=== PATIENT | male | born 1980 | race Caucasian/White ===

== ENCOUNTER 2021-03-25 15:08 | Emergency (ER) | payer SELFPAY ==
[~2021-03-25] VITALS: Ht 187 cm; Wt 88.0 kg
[2021-03-25 15:28] VITALS: BP 139/89
[2021-03-25] MEDS ORDERED: diphenhydrAMINE 50 MG/ML INJ (BENADRYL) IM ONE (15:45)
[2021-03-25] MEDS ORDERED: HYDROcodone/APAP 5 MG/325 MG (LORTAB) TAB PO ONE (15:45)
--- NOTE | 2021-03-25 15:46 | ED Integumentary General ---
General Chief Complaint: Skin/Wound Problems Stated Complaint: HIVES Nursing Triage Note: PT C/O GENERALIZED RASH ON TRUNK AND ARMS. PT REPORTS TAKING MULTIPLE ANTIBIOTICS OVER LAST MONTH FOR FOOT INJURY Source: patient Exam Limitations: no limitations (HERLINDA LAND APRN) History of Present Illness Date Seen by Provider: Mar 25, 2021 Time Seen by Provider: 15:24 Initial Comments This is a well-appearing 41-year-old male who presented to the ER via POV for concerns of generalized rash on his trunk and arms. States that he has been taking multiple antibiotics and recently an antifungal over the past month for an injury to his left foot. States that he has been working with his primary care provider for the past 4 weeks and his foot is still not healing. He would like a second opinion today. No fever, chills, cough, shortness of breath, nausea, vomiting, abdominal pain. Has not taken anything for her rash prior to arrival. (HERLINDA LAND APRN) Allergies and Home Medications Allergies Coded Allergies: amoxicillin (Unverified Allergy, Unknown, 03/25/21) Patient Home Medication List Home Medication List Reviewed: Yes (HERLINDA LAND APRN) Review of Systems Review of Systems Constitutional: no symptoms reported EENTM: no symptoms reported Respiratory: no symptoms reported Cardiovascular: no symptoms reported Gastrointestinal: no symptoms reported Genitourinary: no symptoms reported Musculoskeletal: see HPI Skin: see HPI Psychiatric/Neurological: No Symptoms Reported Endocrine: No Symptoms Reported Hematologic/Lymphatic: No Symptoms Reported (HERLINDA LAND APRN) Past Vtoismk-Vuryyn-Mhzcrz Hx Patient Social History Tobacco Use?: Yes Tobacco type used: Cigarettes Substance use?: No Alcohol Use?: No Pt feels they are or have been: No (HERLINDA LAND APRN) Past Medical History Surgery/Hospitalization HX: RECENT FOOT INJURY (HERLINDA LAND APRN) Physical Exam Vital Signs Vital Signs - First Documented 03/25/21 15:28 Temp 36.7 Pulse 92 Resp 18 B/P (MAP) 139/89 (106) Pulse Ox 98 O2 Delivery Room Air (LINDA KNIGHT MD) Vital Signs Capillary Refill : Less Than 3 Seconds (HERLINDA LAND APRN) General Appearance: WD/WN, no apparent distress HEENT: PERRL/EOMI, normal ENT inspection Neck: full range of motion, normal inspection Cardiovascular: regular rate, rhythm, no edema, no murmur Respiratory: lungs clear, normal breath sounds Gastrointestinal: normal bowel sounds, non tender, soft Extremities: normal range of motion, normal inspection Neurologic/Psychiatric: no motor/sensory deficits, alert, normal mood/affect, oriented x 3 Skin: normal color, warm/dry Skin Problem Location: other (left toes between 3-4 and 4-5) Skin Problem Character: other (macerated white skin from excessive moisture. Open ulceration between toes 3-4. ) (HERLINDA LAND APRN) Progress/Results/Core Measures Results/Orders Vital Signs/I&O 03/25/21 15:28 Temp 36.7 Pulse 92 Resp 18 B/P (MAP) 139/89 (106) Pulse Ox 98 O2 Delivery Room Air (LINDA KNIGHT MD) Blood Pressure Mean: 106 Progress Progress Note : Progress Note On exam he is noted to have macerated skin between toes 3-4 and 4-5 from fungal infection. Has open wound between toes 34. States he has been having increasing pain and is concerned he is developing a secondary infection despite taking antibiotics. Will obtain x-ray to assess for any osteomyelitis. We will also give hydrocodone for pain at this time. Orders placed for Benadryl 50 mg IM for hives along with Decadron IM for hives. Patient and spouse would like wound care referral. Will initiate referral to [facility] wound care. Discussed that this is a fungal infection and would likely take several weeks to heal. Patient also needs to keep his foot as dry as possible. He can place dry gauze between his toes, make sure he uses blow dryer to dry thoroughly between toes after shower. Avoid sweating with socks. Keep his foot open to air is much as possible. Also discussed using solution of saline and iodine. Reviewed discharge POC with him and he is agreeable with plan. At time of discharge verbalized that he can use Benadryl every 4-6 hours as directed per package for itching and rash. Also discussed discontinuing his antifungal which was recently prescribed. States that he has already completed this. We will have him follow-up with his primary care provider. (HERLINDA LAND APRN) Diagnostic Imaging Diagonstic Imaging: Xray Comments [facility]. [place], [place] NAME: MAHENDRA MELGOZA [facility] REC#: [id number] PT STATUS: DEP ER : 1980 PHYSICIAN: HERLINDA LAND APRN ADMIT DATE: 03/25/21/ER Signed Date of Exam:03/25/21 FOOT, LEFT, 3 VIEWS INDICATION: Left foot injury with pain. FINDINGS: AP, oblique, and lateral views of the left foot are obtained. There is no evidence of fracture or malalignment. No focal lytic or sclerotic lesion is identified, and there is no evidence of radiopaque foreign object. IMPRESSION: No acute abnormality is detected. Dictated by: Dictated on workstation # [id number] Dict: 03/25/21 1557 Trans: 03/26/21 0759 [id number] Interpreted by: SUDHIR MADISON MD Electronically signed by: SUDHIR MADISON MD 03/26/21 0759 (HERLINDA LAND APRN) Departure Impression Primary Impression: Tinea pedis Disposition: HOME, SELF-CARE Condition: Stable Departure-Patient Inst. Decision time for Depature: 16:40 (HERLINDA LAND APRN) Referrals: [facility] (PCP/Family) Primary Care Physician Patient Instructions: Athlete's Foot Add. Discharge Instructions: This condition is also known as tinea pedis and is caused by a fungus that lives in the warm, moist crevices of the feet and toes. Plan: 1. Will refer to wound care. They will call you with date/time of appointment. 2. After washing area with mild soap and water. Make sure to pat dry or even use political science chair to keep area dry. 3. You can use clean gauze to keep area dry. Keep area open to air as much as possible. 4. Return for any new, concerning, or worsening symptoms. 5. You can apply thin layer of diluted iodine to area after washing and drying thoroughly. Allow to air dry. All discharge instructions reviewed with patient and/or family. Voiced understanding. ATTENDING PHYSICIAN NOTE: I was physically present as attending physician in the emergency department during the care of this patient, but I was not directly involved in the decision making or delivery of care for this patient. (LINDA KNIGHT MD) HERLINDA LAND APRN Mar 25, 2021 15:46 LINDA KNIGHT MD Mar 31, 2021 06:56
--- NOTE | 2021-03-25 16:04 | Diagnostic Imaging Report ---
INDICATION: Left foot injury with pain. FINDINGS: AP, oblique, and lateral views of the left foot are obtained. There is no evidence of fracture or malalignment. No focal lytic or sclerotic lesion is identified, and there is no evidence of radiopaque foreign object. IMPRESSION: No acute abnormality is detected. Dictated by: Dictated on workstation # [id number]
== END 2021-03-25 16:55 | disposition home or self-care (01) ==
LOC: ER 15:11
DX: B35.3 Tinea pedis (principal)
CPT/HCPCS: 73630; 96372

== ENCOUNTER → 2021-04-04 | Outpatient (CLI) | payer OTHER ==
[2021-04-04 11:44] LABS: ALBUMIN 4.4 GM/DL (3.2-4.5); BILIRUBIN,TOTAL 0.5 MG/DL (0.1-1.0); CALCIUM 9.5 MG/DL (8.5-10.1); CREATININE SERUM 0.88 MG/DL (0.60-1.30); POTASSIUM 4.1 MMOL/L (3.6-5.0); TOTAL PROTEIN 7.7 GM/DL (6.4-8.2)
== END ==
LOC: LAB 10:52
PROVIDERS: ATTEND Family Medicine
DX: L97.512 Non-pressure chronic ulcer of other part of right foot with fat layer exposed (principal); B35.3 Tinea pedis; L84 Corns and callosities; T65.222A Toxic effect of tobacco cigarettes, intentional self-harm, initial encounter
CPT/HCPCS: 36415; 80053; 83036; 85652; 86141

== ENCOUNTER → 2021-04-04 | Outpatient (CLI) | payer OTHER | LOC: WOUNDCARE 08:45 | PROVIDERS: ATTEND Family Medicine | DX: L97.512 Non-pressure chronic ulcer of other part of right foot with fat layer exposed (principal); B35.3 Tinea pedis; L84 Corns and callosities; T65.222A Toxic effect of tobacco cigarettes, intentional self-harm, initial encounter | CPT/HCPCS: 87101; A6197; G0463; 99214 ==

== ENCOUNTER → 2021-04-09 | Outpatient (CLI) | payer OTHER | LOC: WOUNDCARE 08:05 | PROVIDERS: ATTEND Family Medicine | DX: L97.512 Non-pressure chronic ulcer of other part of right foot with fat layer exposed (principal); B35.3 Tinea pedis; L84 Corns and callosities; T65.222A Toxic effect of tobacco cigarettes, intentional self-harm, initial encounter; B07.8 Other viral warts; I96 Gangrene, not elsewhere classified | CPT/HCPCS: 11042; G0463 ==

== ENCOUNTER → 2021-04-23 | Outpatient (CLI) | payer OTHER | LOC: WOUNDCARE 08:31 | PROVIDERS: ATTEND Family Medicine | DX: L97.512 Non-pressure chronic ulcer of other part of right foot with fat layer exposed (principal); B35.3 Tinea pedis; L84 Corns and callosities; T65.222A Toxic effect of tobacco cigarettes, intentional self-harm, initial encounter; B07.8 Other viral warts | CPT/HCPCS: 99212 ==

== ENCOUNTER 2021-05-20 15:57 | Emergency (ER) | payer OTHER ==
[~2021-05-20] VITALS: Ht 185 cm; Wt 93.0 kg
--- NOTE | 2021-05-20 16:48 | ED EENT ---
History of Present Illness General Chief Complaint: Cough/Cold/Flu Symptoms Stated Complaint: SOB/THROAT DISCOMFORT Nursing Triage Note: PT AMB TO [facility] 10 WITH C/O NO VOICE X2 MONTHS, COUGH, AND SOB WORSENING TODAY. PT WAS SEEN AT [facility] YESTERDAY AND GIVEN PREDNISONE Source: patient Exam Limitations: no limitations History of Present Illness Date Seen by Provider: May 20, 2021 Time Seen by Provider: 16:20 Initial Comments Patient to the ER by private conveyance chief complaint of sore throat for the past 2 months. He says is hoarse is not really painful but he also feels like he gets short of breath when he tries to talk. He says he started a new job to [employer] about 3 months ago works nights and is very loud there. He does not feel like he strained his voice. He does not have problems swallowing fluids or food. Does not have bad acid reflux but he does smoke about half a pack a day he used to drink and use recreational drugs with his last use being 4 months ago. No prior work-up or history of laryngeal nodules or other tumors. No thyroid issues. No heat or cold insensitivity, hair becoming brittle or falling out, unexplained weight loss or gain. He talk to his primary care doctor and says that she blew it off. He went to urgent care and they put him on steroids yesterday and he is taken 2 doses. No diabetes or immunocompromise. Allergies and Home Medications Allergies Coded Allergies: amoxicillin (Unverified Allergy, Unknown, 03/25/21) Patient Home Medication List Home Medication List Reviewed: Yes Review of Systems Review of Systems Constitutional: No chills, No diaphoresis Eyes: Denies Blindness, Denies Blurred Vision Ears: Denies Dizziness, Denies Pain Nose: denies clots, denies congestion Mouth: denies clots, denies loose teeth Throat: denies pain, denies swelling Respiratory: No cough, No phlegm; short of breath Cardiovascular: No chest pain, No palpitations All Other Systems Reviewed Negative Unless Noted: Yes Past Jojmrlf-Phadjq-Spqeaj Hx Patient Social History Tobacco Use?: Yes Tobacco type used: Cigarettes Smoking Status: Current Everyday Smoker Use of E-Cig and/or Vaping dev: Yes E-Cig or Vaping type used: Nicotine Use of E-Cig and/or Vaping Danie: Current Everyday User Substance use?: No Alcohol Use?: No Pt feels they are or have been: No Immunizations Up To Date Influenza Vaccine Up-to-Date: No; Not Current Past Medical History Surgery/Hospitalization HX: RECENT FOOT INJURY Physical Exam Vital Signs Vital Signs - First Documented 05/20/21 16:15 Temp 35.7 Pulse 86 Resp 18 B/P (MAP) 145/91 (109) Height, Weight, BMI Height: '" Weight: lbs. oz. kg; 27.00 BMI Method: General Appearance: WD/WN, no apparent distress Eyes: bilateral eye normal inspection, bilateral eye PERRL, bilateral eye EOMI Ears: bilateral ear auricle normal, bilateral ear canal normal, bilateral ear TM normal Nose: normal inspection, active bleeding, discharge Mouth/Throat: normal mouth inspection; No pharynx normal (Mildly dry oral mucosa without erythema, exudate, mass, midline deviation of uvula or retropharyngeal soft tissues. No injection or tumors palpable externally or visible) Neck: full range of motion, supple, normal inspection; No lymphadenopathy (R), No lymphadenopathy (L), No thyromegaly; other (Little tender to palpation over the anterior laryngeal cartilage. No palpable mass or tumor.) Cardiovascular: normal peripheral pulses, regular rate, rhythm Respiratory: lungs clear, normal breath sounds, no respiratory distress, no accessory muscle use Neurologic/Psychiatric: alert, normal mood/affect, oriented x 3 Skin: normal color, warm/dry Progress/Results/Core Measures Results/Orders Lab Results Laboratory Tests Test 05/20/21 16:28 05/20/21 16:35 Range/Units Influenza Type A (RT-PCR) Not Detected Not Detecte Influenza Type B (RT-PCR) Not Detected Not Detecte SARS-CoV-2 RNA (RT-PCR) Not Detected Not Detecte Group A Streptococcus Screen NEGATIVE NEGATIVE My Orders Orders - BYRON FULLER Covid 19 Inhouse Test (05/20/21 16:41) Influenza A And B By Pcr (05/20/21 16:41) Rapid Strep A Screen (05/20/21 16:41) Chest 1 View, Ap/Pa Only (05/20/21 16:41) Vital Signs/I&O 05/20/21 16:15 Temp 35.7 Pulse 86 Resp 18 B/P (MAP) 145/91 (109) Blood Pressure Mean: 109 Progress Progress Note : Time: 16:45 Progress Note First shortness of breath the patient is able to speak in full sentences nonstop and maintain oxygen saturations in the upper 90s on room air without labored breathing. We will get a chest x-ray and encourage him to continue the steroids. COVID flu and rapid strep swabs obtained. If the steroids do not help then will recommend an ENT referral. External anatomy unremarkable on exam a little bit tender when pushing on his larynx. He does not seem to have any palpable thyroglossal or branchial cleft cysts. Diagnostic Imaging Diagonstic Imaging: Xray Plain Films/CT/US/NM/MRI: chest Comments [facility] [place] [place] NAME: MAHENDRA MELGOZA [facility] REC#: [id number] PT STATUS: REG ER : 1980 PHYSICIAN: BYRON FULLER MD ADMIT DATE: 05/20/21/ER Draft Date of Exam:05/20/21 CHEST 1 VIEW, AP/PA ONLY INDICATION: sob COMPARISON: None. FINDINGS: Single frontal view of the chest demonstrates normal heart size and pulmonary vascularity. The lungs are well aerated and clear. No large pleural effusion or pneumothorax is seen. The visualized osseous structures show no acute abnormalities. IMPRESSION: 1. No acute cardiopulmonary process. Dictated on workstation # [id number] Dict: 05/20/211703 Trans: 05/20/211705 AS6 [id number] Interpreted by: MORA CLAY MD Electronically signed by: Reviewed: Reviewed by Me Departure Impression Primary Impression: Hoarseness, persistent Disposition: 01 HOME, SELF-CARE Condition: Stable Departure-Patient Inst. Decision time for Depature: 17:15 Referrals: ARGENTINA MIRZA [facility] (PCP/Family) Primary Care Physician Patient Instructions: Laryngitis (DC) Add. Discharge Instructions: We will culture the swab of your throat and see if any bacteria grows out over the next 2 to 3 days. Continue to take the steroids as directed. If not seeing improvement on the steroids then call Dr. Mirza, ear nose and th roat surgeon for a follow-up appointment in the next couple weeks to explore why your having persistent salt water gargles as often as necessary to help relieve some of the symptoms. Return to the ER if you are unable to eat, drink or have significantly worsening breathing. . All discharge instructions reviewed with patient and/or family. Voiced understanding. Copy Copies To 1: ARGENTINA MIRZA MD, TITUS J May 20, 2021 16:48
--- NOTE | 2021-05-20 17:07 | Diagnostic Imaging Report ---
INDICATION: sob COMPARISON: None. FINDINGS: Single frontal view of the chest demonstrates normal heart size and pulmonary vascularity. The lungs are well aerated and clear. No large pleural effusion or pneumothorax is seen. The visualized osseous structures show no acute abnormalities. IMPRESSION: 1. No acute cardiopulmonary process. Dictated by: Dictated on workstation # [id number]
[2021-05-20 17:26] VITALS: BP 133/79
== END 2021-05-20 17:28 | disposition home or self-care (01) ==
LOC: EDUNIT# 15:57 → ER 15:59
DX: R49.0 Dysphonia (principal); F17.210 Nicotine dependence, cigarettes, uncomplicated; Z20.822 Contact with and (suspected) exposure to COVID-19
CPT/HCPCS: 71045; 87430; 87636

== ENCOUNTER 2021-08-05 18:39 | Inpatient (IN) | payer OTHER ==
[~2021-08-05] VITALS: Ht 187.9 cm; Wt 92.2 kg
[2021-08-05] MEDS ORDERED: morphine INJ 10 MG/ML 1ML (SYR OR VIAL) IVP STA (18:57)
[2021-08-05] MEDS ORDERED: NS IV 1000 ML 1,000 ML IV SCH (19:00)
[2021-08-05] MEDS ORDERED: MEROPENEM 500 MG in NS (IVPB) 100 ML IV ONE (19:00)
[2021-08-05] MEDS ORDERED: VANCOMYCIN INJECTION 1,000 MG in NS (IVPB) 250 ML IV ONE (19:00)
[2021-08-05 19:05] VITALS: BP 129/70
--- NOTE | 2021-08-05 19:12 | ED Integumentary General ---
General Chief Complaint: Bite-Animal/Human/Insect Stated Complaint: DOG BITE Nursing Triage Note: PT TO RM 8 BY WC. PT WAS TOLD TO COME TO ER BY [facility] FOR FURTHER CARE. PT WAS ADMITTED ON IV ANTIBIOTICS, BUT DID NOT HAVE GENERAL SURGEON OR ORTHO DERRICK WORKER. PT REFUSED TO BE SENT BY AMBULANCE. PER REPORT FROM [place], PT WAS [facility] AND SLEPT IN THE [place]. PT UPSET A STRAY DOG AND WAS ATTACK. PT HAS DRESSED DOG BITES ON RIGHT HAND, RIGHT THIGH, AND LEFT CALF. Source: patient, other Exam Limitations: no limitations History of Present Illness Date Seen by Provider: August 05, 2021 Time Seen by Provider: 18:45 Initial Comments Patient to the ER by private conveyance with his significant other chief complaint that he was discharged about 2:00 this afternoon from [facility] with infected dog bite wounds. The plan was to get him transferred to [place] but he did not want to take an ambulance and says he is from [place] anyway so he left AMA and came to the ER here. He was being treated with IV antibiotics and had imaging as well as blood cultures and labs done daily at [facility]. He states that the wounds were not getting better as pain was getting out of control and they do not have a surgeon or orthopedic surgeon supervisor functional testing. We spoke with the doctor taking care of him at [facility] and they do not have us surgeon for the next couple days. The patient signed out AMA because he did not want EMS transport. He was on IV ertapenem. He has not been troublesome just did not want to go by EMS. She was concerned about his right hand swelling despite copious IV antibiotics and there is a black eschar forming on his left leg wound below the knee that looked necrotic. He has had a chronic right fourth toe wound since March of this year its not healing. He is borderline diabetic. Patient states the dog belongs to a friend and was just out of quarantine for biting somebody else. It is up-to-date on its rabies vaccinations. He was at a ceremony on Thursday when the dog bit him and he was using methamphetamines. 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 Allergies and Home Medications Allergies Coded Allergies: amoxicillin (Unverified Allergy, Unknown, 03/25/21) Patient Home Medication List Home Medication List Reviewed: Yes Review of Systems Review of Systems Constitutional: No chills, No fever; malaise EENTM: No ear discharge, No ear pain Respiratory: No cough, No short of breath Cardiovascular: No chest pain, No palpitations Gastrointestinal: No abdominal pain, No nausea Genitourinary: No discharge, No dysuria Musculoskeletal: No back pain; joint pain (Right hand, distal right thigh wound and anterior proximal left tib/fib) Skin: see HPI, change in color, other (Erythematous, indurated appearance to the wounds on the left tib-fib area and right distal thigh anteriorly. The right hand is swollen, erythematous, indurated going up the middle of the right forearm.) All Other Systems Reviewed Negative Unless Noted: Yes Past [id number] Hx Patient Social History Tobacco Use?: Yes Tobacco type used: Cigarettes Smoking Status: Current Everyday Smoker Use of E-Cig and/or Vaping dev: No Substance use?: Yes Substance type: Methamphetamine, Marijuana Alcohol Use?: Yes Pt feels they are or have been: No Past Medical History Surgery/Hospitalization HX: RECENT FOOT INJURY Physical Exam Vital Signs Vital Signs - First Documented 08/05/21 18:48 Pulse 103 Resp 20 B/P (MAP) 134/78 (96) Pulse Ox 95 O2 Delivery Room Air Capillary Refill : Less Than 3 Seconds General Appearance: WD/WN, mild distress HEENT: PERRL/EOMI, pharynx normal Neck: full range of motion, normal inspection Cardiovascular: normal peripheral pulses, regular rate, rhythm Respiratory: lungs clear, normal breath sounds, no respiratory distress, no accessory muscle use Gastrointestinal: normal bowel sounds, non tender Neurologic/Psychiatric: no motor/sensory deficits, alert, normal mood/affect, oriented x 3 Skin: other (Black eschar/skin flap approximately 1 x 2 cm over the left ragged wound consistent with a dog bite on his proximal tibia-fibula anteriorly. There is some erythema going up and down the leg and some swelling. Right distal femur anterior wound is a ragged dog bite with swelling, tenderness, induration without purulence and surrounding erythema. The wound on his right hand is a couple centimeters long laceration on the dorsum and on the ulnar side is another Centimeter more superficial wound. The whole hand is circumferentially swollen involving the fingers, erythematous, indurated without crepitus or subcutaneous emphysema.) Progress/Results/Core Measures Results/Orders Lab Results Laboratory Tests Test 08/05/21 19:11 08/05/21 19:18 Range/Units Urine Color YELLOW Urine Clarity CLEAR Urine pH 6.0 5-9 Urine Specific [place] 1.025 H 1.016-1.022 Urine Protein NEGATIVE NEGATIVE Urine Glucose (UA) NEGATIVE NEGATIVE Urine Ketones NEGATIVE NEGATIVE Urine Nitrite NEGATIVE NEGATIVE Urine Bilirubin NEGATIVE NEGATIVE Urine Urobilinogen 2.0 < = 1.0 MG/DL Urine Leukocyte Esterase NEGATIVE NEGATIVE Urine RBC (Auto) NEGATIVE NEGATIVE Urine RBC RARE /HPF Urine WBC 2-5 /HPF Urine Squamous Epithelial Cells RARE /HPF Urine Crystals NONE /LPF Urine Bacteria FEW H /HPF Urine Casts NONE /LPF Urine Mucus MODERATE H /LPF Urine Culture Indicated CULTURE PENDING Urine Opiates Screen POSITIVE H NEGATIVE Urine Oxycodone Screen NEGATIVE NEGATIVE Urine Methadone Screen NEGATIVE NEGATIVE Urine Propoxyphene Screen NEGATIVE NEGATIVE Urine Barbiturates Screen NEGATIVE NEGATIVE Ur Tricyclic Antidepressants Screen NEGATIVE NEGATIVE Urine Phencyclidine Screen NEGATIVE NEGATIVE Urine Amphetamines Screen POSITIVE H NEGATIVE Urine Methamphetamines Screen POSITIVE H NEGATIVE Urine Benzodiazepines Screen NEGATIVE NEGATIVE Urine Cocaine Screen NEGATIVE NEGATIVE Urine Cannabinoids Screen POSITIVE H NEGATIVE White Blood Count 12.6 H 4.3-11.0 10^3/uL Red Blood Count 5.01 4.30-5.52 10^6/uL Hemoglobin 14.4 13.3-17.7 g/dL Hematocrit 42 40-54 % Mean Corpuscular Volume 84 80-99 fL Mean Corpuscular Hemoglobin 29 25-34 pg Mean Corpuscular Hemoglobin Concent 34 32-36 g/dL Red Cell Distribution Width 14.1 10.0-14.5 % Platelet Count 229 130-400 10^3/uL Mean Platelet Volume 10.8 9.0-12.2 fL Immature Granulocyte % (Auto) 0 % Neutrophils (%) (Auto) 71 42-75 % Lymphocytes (%) (Auto) 19 12-44 % Monocytes (%) (Auto) 9 0-12 % Eosinophils (%) (Auto) 1 0-10 % Basophils (%) (Auto) 0 0-10 % Neutrophils # (Auto) 8.9 H 1.8-7.8 10^3/uL Lymphocytes # (Auto) 2.3 1.0-4.0 10^3/uL Monocytes # (Auto) 1.1 H 0.0-1.0 10^3/uL Eosinophils # (Auto) 0.1 0.0-0.3 10^3/uL Basophils # (Auto) 0.0 0.0-0.1 10^3/uL Immature Granulocyte # (Auto) 0.0 0.0-0.1 10^3/uL Prothrombin Time 13.7 12.2-14.7 SEC INR Comment 1.0 0.8-1.4 Activated Partial Thromboplast Time 33 24-35 SEC Sodium Level 136 135-145 MMOL/L Potassium Level 3.6 3.6-5.0 MMOL/L Chloride Level 100 98-107 MMOL/L Carbon Dioxide Level 21 21-32 MMOL/L Anion Gap 15 H 5-14 MMOL/L Blood Urea Nitrogen 9 7-18 MG/DL Creatinine 0.91 0.60-1.30 MG/DL Estimat Glomerular Filtration Rate 107 BUN/Creatinine Ratio 10 Glucose Level 118 H 70-105 MG/DL Lactic Acid Level 0.74 0.50-2.00 MMOL/L Calcium Level 9.0 8.5-10.1 MG/DL Corrected Calcium 8.9 8.5-10.1 MG/DL Total Bilirubin 0.8 0.1-1.0 MG/DL Aspartate Amino Transf (AST/SGOT) 24 5-34 U/L Alanine Aminotransferase (ALT/SGPT) 19 0-55 U/L Alkaline Phosphatase 37 L 40-136 U/L Total Protein 7.0 6.4-8.2 GM/DL Albumin 4.1 3.2-4.5 GM/DL My Orders Orders - BYRON FULLER Ed Iv/Invasive Line Start (08/05/21 18:57) Ns Iv 1000 Ml (Sodium Chloride 0.9%) (08/05/21 19:00) Hand, Right, 3 Views (08/05/21 18:57) Femur, Right, 2 Views (08/05/21 18:57) Tibia/Fibula, Left, 2 Views (08/05/21 18:57) Cbc With Automated Diff (08/05/21 18:57) Comprehensive Metabolic Panel (08/05/21 18:57) Blood Culture (08/05/21 18:57) Urinalysis (08/05/21 18:57) Urine Culture (08/05/21 18:57) Protime With Inr (08/05/21 18:57) Partial Thromboplastin Time (08/05/21 18:57) Ed Iv/Invasive Line Start (08/05/21 18:57) Ed Iv/Invasive Line Start (08/05/21 18:57) Vital Signs Adult Sepsis Patie Q15M (08/05/21 18:57) Remove Rings In Anticipation O (08/05/21 18:57) Lactic Acid Analyzer (08/05/21 18:57) Meropenem (Merrem 500 Mg) (08/05/21 19:00) Vancomycin Injection (Vancomycin Injecti (08/05/21 19:00) Vancomycin Injection (Vancomycin Injecti (08/05/21 20:00) Drug Screen Stat (Urine) (08/05/21 18:57) Morphine Injection (Morphine Injection (08/05/21 18:57) Medications Given in ED Current Medications Medications Dose Ordered Sig/Merna Route Start Time Stop Time Status Last Admin Dose Admin Meropenem 500 mg/ Sodium Chloride 100 ml @ 200 mls/hr ONCE ONCE IV 08/05/21 19:00 08/05/21 19:29 DC 08/05/21 19:30 200 MLS/HR Vancomycin HCl 1000 mg/Sodium Chloride 250 ml @ 250 mls/hr ONCE ONCE IV 08/05/21 19:00 08/05/21 19:59 DC 08/05/21 20:05 250 MLS/HR Vital Signs/I&O 08/05/21 18:48 Pulse 103 Resp 20 B/P (MAP) 134/78 (96) Pulse Ox 95 O2 Delivery Room Air Blood Pressure Mean: 96 Progress Progress Note : Time: 19:13 Progress Note He is tachycardic around 101 although this could also be from pain. We will start with a liter of fluids, meropenem, vancomycin and get a surgical consult. We will obtain some plain films. Morphine 4 mg for pain. Diagnostic Imaging Diagonstic Imaging: Xray Plain Films/CT/US/NM/MRI: hand (r) Comments [facility]. [place], [place] NAME: MAHENDRA MELGOZA MED REC#: [id number] PT STATUS: ADM IN : 1980 PHYSICIAN: BYRON FULLER MD ADMIT DATE: 08/05/21 Draft Date of Exam:08/05/21 HAND, RIGHT, 3 VIEWS HAND, RIGHT, 3 VIEWS INDICATION: Dog bite to hand. COMPARISON: None available. TECHNIQUE: Three views of the right hand. FINDINGS: Soft tissue swelling to the dorsal aspect of the hand. No radiopaque foreign body. No osseous erosions or fractures. IMPRESSION: No radiopaque foreign body or features of osteomyelitis. Dictated on workstation # [id number] Dict: 08/05/212012 Trans: 08/05/212014 [facility] [id number] Interpreted by: EMILY REYES MD Electronically signed by: Reviewed: Reviewed by Hi Diagonstic Imaging: Xray Plain Films/CT/US/NM/MRI: leg (Left) Comments [facility] [place] [place] NAME: MAHENDRA MELGOZA MED REC#: [id number] PT STATUS: ADM IN : 1980 PHYSICIAN: BYRON FULLER MD ADMIT DATE: 08/05/21 Draft Date of Exam:08/05/21 TIBIA/FIBULA, LEFT, 2 VIEWS TIBIA/FIBULA, LEFT, 2 VIEWS INDICATION: Soft tissue injury in the proximal lower leg. Pain. COMPARISON: None available. TECHNIQUE: Two views of the left tibia and fibula. FINDINGS: No radiopaque foreign body. No fracture or osseous erosions. The knee and ankle are normal in alignment. IMPRESSION: No radiopaque foreign body or radiographic features of osteomyelitis. Dictated on workstation # [id number] Dict: 08/05/212006 Trans: 08/05/212009 [facility] [id number] Interpreted by: EMILY REYES MD Electronically signed by: Reviewed: Reviewed by Hi Diagonstic Imaging: Xray Plain Films/CT/US/NM/MRI: femur (Right) Comments [facility] [place] [place] NAME: MAHENDRA MELGOZA MED REC#: [id number] PT STATUS: ADM IN : 1980 PHYSICIAN: BYRON FULLER MD ADMIT DATE: 08/05/21 Draft Date of Exam:08/05/21 FEMUR, RIGHT, 2 VIEWS FEMUR, RIGHT, 2 VIEWS INDICATION: Leg pain COMPARISON: None available. TECHNIQUE: 2 views of the right femur. FINDINGS: No fracture or concerning focal osseous lesion. The knee and hip are normal in alignment. No radiopaque foreign body. IMPRESSION: No fracture or radiopaque foreign body. Dictated on workstation # [id number] Dict: 08/05/212005 Trans: 08/05/212008 [facility] [id number] Interpreted by: EMILY REYES MD Electronically signed by: Reviewed: Reviewed by Me Departure Communication (Admissions) Time/Spoke to Admitting Phy: 19:15 Discussed the case with Dr. PAINTING, general surgery and he agrees to do a debridement tomorrow at 1030 AM. N.p.o. at 2 AM. Diabetic diet. Meropenem and vancomycin Impression Primary Impression: Dog bite Qualified Codes: W54.0XXD - Bitten by dog, subsequent encounter Additional Impression: Bite wound of right hand with infection Qualified Codes: S61.451A - Open bite of right hand, initial encounter; L08.9 - Local infection of the skin and subcutaneous tissue, unspecified Disposition: ADMITTED INPATIENT Condition: Stable Admissions Decision to Admit Reason: Admit from ER (General) Decision to Admit/Date: August 05, 2021 Time/Decision to Admit Time: 19:15 Departure-Patient Inst. Referrals: [facility] (PCP/Family) Primary Care Physician BYRON FULLER August 05, 2021 19:12
[2021-08-05 19:16] LABS: BILIRUBIN,URINE NEGATIVE (NEGATIVE); CLARITY,URINE CLEAR; COLOR,URINE YELLOW; GLUCOSE, URINE (UA) NEGATIVE (NEGATIVE); KETONES,URINE NEGATIVE (NEGATIVE); LEUKOCYTE ESTERASE ,URINE NEGATIVE (NEGATIVE); NITRITE,URINE NEGATIVE (NEGATIVE); PROTEIN,URINE NEGATIVE (NEGATIVE)
[2021-08-05 19:30] LABS: BASOPHILS % (AUTO) 0 % (0-10); EOSINOPHILS # (AUTO) 0.1 10^3/uL (0.0-0.3); EOSINOPHILS % (AUTO) 1 % (0-10); HEMATOCRIT 42 % (40-54); HEMOGLOBIN 14.4 g/dL (13.3-17.7); LYMPHOCYTES # (AUTO) 2.3 10^3/uL (1.0-4.0); LYMPHOCYTES % (AUTO) 19 % (12-44); MEAN CORPUSCULAR HEMOGLOBIN 29 pg (25-34); MEAN CORPUSCULAR HGB CONC 34 g/dL (32-36); MEAN CORPUSCULAR VOLUME 84 fL (80-99); MEAN PLATELET VOLUME 10.8 fL (9.0-12.2); MONOCYTES # (AUTO) 1.1 10^3/uL (0.0-1.0); MONOCYTES % (AUTO) 9 % (0-12); NEUTROPHILS # (AUTO) 8.9 10^3/uL (1.8-7.8); NEUTROPHILS % (AUTO) 71 % (42-75); PLATELET COUNT 229 10^3/uL (130-400); WHITE BLOOD COUNT 12.6 10^3/uL (4.3-11.0)
[2021-08-05 19:37] LABS: BACTERIA,URINE FEW /HPF; RBC,URINE RARE /HPF; SQUAMOUS EPITHELIAL CELL,UR RARE /HPF
[2021-08-05 19:38] LABS: AMPHETAMINE SCREEN, URINE POSITIVE (NEGATIVE); BARBITURATE SCREEN URINE NEGATIVE (NEGATIVE); BENZODIAZEPINES SCREEN URINE NEGATIVE (NEGATIVE); CANNABINOID SCREEN, URINE POSITIVE (NEGATIVE); COCAINE SCREEN URINE NEGATIVE (NEGATIVE); METHADONE STAT NEGATIVE (NEGATIVE); OPIATE SCREEN URINE POSITIVE (NEGATIVE); OXYCODONE STAT NEGATIVE (NEGATIVE); PROPOXYPHENE STAT NEGATIVE (NEGATIVE); TRICYCLIC ANTIDEPRESSANTS SCRE NEGATIVE (NEGATIVE)
[2021-08-05 19:41] LABS: ALBUMIN 4.1 GM/DL (3.2-4.5)
[2021-08-05 19:42] LABS: POTASSIUM 3.6 MMOL/L (3.6-5.0)
[2021-08-05 19:45] LABS: PROTHROMBIN TIME PATIENT 13.7 SEC (12.2-14.7)
[2021-08-05 19:46] LABS: BILIRUBIN,TOTAL 0.8 MG/DL (0.1-1.0)
[2021-08-05 19:48] LABS: CREATININE SERUM 0.91 MG/DL (0.60-1.30)
[2021-08-05] MEDS ORDERED: VANCOMYCIN INJECTION 750 MG in NS (IVPB) 250 ML IV ONE (20:00)
--- NOTE | 2021-08-05 20:09 | Diagnostic Imaging Report ---
FEMUR, RIGHT, 2 VIEWS INDICATION: Leg pain COMPARISON: None available. TECHNIQUE: 2 views of the right femur. FINDINGS: No fracture or concerning focal osseous lesion. The knee and hip are normal in alignment. No radiopaque foreign body. IMPRESSION: No fracture or radiopaque foreign body. Dictated by: Dictated on workstation # [id number]
--- NOTE | 2021-08-05 20:10 | Diagnostic Imaging Report ---
TIBIA/FIBULA, LEFT, 2 VIEWS INDICATION: Soft tissue injury in the proximal lower leg. Pain. COMPARISON: None available. TECHNIQUE: Two views of the left tibia and fibula. FINDINGS: No radiopaque foreign body. No fracture or osseous erosions. The knee and ankle are normal in alignment. IMPRESSION: No radiopaque foreign body or radiographic features of osteomyelitis. Dictated by: Dictated on workstation # [id number]
--- NOTE | 2021-08-05 20:15 | Diagnostic Imaging Report ---
HAND, RIGHT, 3 VIEWS INDICATION: Dog bite to hand. COMPARISON: None available. TECHNIQUE: Three views of the right hand. FINDINGS: Soft tissue swelling to the dorsal aspect of the hand. No radiopaque foreign body. No osseous erosions or fractures. IMPRESSION: No radiopaque foreign body or features of osteomyelitis. Dictated by: Dictated on workstation # [id number]
--- NOTE | 2021-08-05 20:28 | Progress Note-Pre Operative ---
Pre-Operative Progress Note H&P Reviewed The H&P was reviewed, patient examined and no changes noted. Date Seen by Provider: August 05, 2021 Time Seen by Provider: 21:00 Date H&P Reviewed: August 05, 2021 Time H&P Reviewed: 21:00 Pre-Operative Diagnosis: right hand and right thigh abscess and skin necrosis. MARY PAINTING MD August 05, 2021 20:28
--- NOTE | 2021-08-05 21:45 | HISTORY AND PHYSICAL ---
DATE OF SERVICE: HISTORY OF PRESENT ILLNESS: The patient is a 41-year-old male, who presented to [facility] by private vehicle. He states that he was at some form of celebration and was playing with the dog and the dog had bit him along the right hand, right thigh as well as left calf. He was seen at [facility] and was given IV dose of antibiotics as well as oral antibiotics. He states that the swelling along the hand worsened and he went back to [place] and they had stated that there was no general surgical coverage available. He was instructed to be admitted and continue with IV antibiotics; however, the patient left AMA. He does have a history of drug abuse and was positive for methamphetamine, amphetamine, marijuana as well as opiates. This information was relayed by the Emergency Department physician [facility] as well as the electronic medical records. Physical examination will be performed in the morning and updated. PAST MEDICAL HISTORY: Drug abuse. PAST SURGICAL HISTORY: None. ALLERGIES: AMOXICILLIN. MEDICATIONS: None. SOCIAL HISTORY: Positive for cigarette smoke 20 pack years, positive for methamphetamine, amphetamine, marijuana and opiates. Positive for alcohol. VITAL SIGNS: Blood pressure 134/78, pulse 103, respirations 20, pulse ox 95% on room air. REVIEW OF SYSTEMS: Well-nourished male currently in no acute distress. He is not experiencing any shortness of breath or difficulty breathing. No chest pain, palpitations, diaphoresis. No nausea, vomiting, no diarrhea or constipation. No fever, chills, no recent inadvertent weight loss. All other review of systems negative. PHYSICAL EXAMINATION: Will be performed in the morning. LABORATORY DATA: WBC 12.6, hemoglobin 14.4, hematocrit 42, platelets 229, BUN 9, creatinine 0.91. ASSESSMENT AND PLAN: A 41-year-old male with a dog bite along the right hand, right thigh as well as left calf. The main issue is right hand swelling along the dorsal aspect with redness and erythema tracking to the forearm. There is an area of dry necrosis overlying the right tib-fib region with no surrounding redness or erythema as well as no fluctuance to indicate any abscess. We will admit him, start IV fluids as well as IV antibiotics. Evaluate his wounds in the morning and if indicated proceed with debridement of the right hand as well as possible right thigh. Job ID: [id number] DocumentID: [id number] Dictated Date: 08/05/2021 20:23:56 Gauge And Weigh Machine Adjuster Date: 08/05/2021 21:45:12 Dictated By: MARY PAINTING MD MTDD
[2021-08-05] MEDS ORDERED: LORazepam INJ 2 MG/ML (ATIVAN) VIAL IV PRN (22:15)
[2021-08-05] MEDS ORDERED: ONDANSETRON 4 MG/2 ML (SDV) Z0FRAN IV PRN (22:15)
[2021-08-05] MEDS: HYDROcodone/APAP 5 MG/325 MG (LORTAB) TAB PO PRN (22:56)
[2021-08-05] MEDS: LACTATED RINGERS 1,000 ML IV SCH (22:56)
[2021-08-06] VITALS (12 sets, daily range): BP systolic 124–156; BP diastolic 69–99
[2021-08-06] MEDS: MEROPENEM 500 MG in NS (IVPB) 100 ML IV SCH ×4 (03:25→20:01)
[2021-08-06 05:42] LABS: BASOPHILS % (AUTO) 0 % (0-10); EOSINOPHILS # (AUTO) 0.2 10^3/uL (0.0-0.3); EOSINOPHILS % (AUTO) 2 % (0-10); HEMATOCRIT 43 % (40-54); HEMOGLOBIN 14.2 g/dL (13.3-17.7); LYMPHOCYTES # (AUTO) 2.3 10^3/uL (1.0-4.0); LYMPHOCYTES % (AUTO) 28 % (12-44); MEAN CORPUSCULAR HEMOGLOBIN 28 pg (25-34); MEAN CORPUSCULAR HGB CONC 33 g/dL (32-36); MEAN CORPUSCULAR VOLUME 86 fL (80-99); MEAN PLATELET VOLUME 10.9 fL (9.0-12.2); MONOCYTES # (AUTO) 1.1 10^3/uL (0.0-1.0); MONOCYTES % (AUTO) 13 % (0-12); NEUTROPHILS # (AUTO) 4.7 10^3/uL (1.8-7.8); NEUTROPHILS % (AUTO) 57 % (42-75); PLATELET COUNT 201 10^3/uL (130-400); WHITE BLOOD COUNT 8.2 10^3/uL (4.3-11.0)
[2021-08-06] MEDS: inSUlin ASPART (NovoLOG) 1 UNIT/0.01 ML (CHARGE PER UNIT) SC SCH ×3 (05:47→16:20)
[2021-08-06] MEDS: LACTATED RINGERS 1,000 ML IV SCH ×4 (05:54→21:12)
[2021-08-06 06:00] LABS: POTASSIUM 3.5 MMOL/L (3.6-5.0)
[2021-08-06 06:01] LABS: CALCIUM 8.6 MG/DL (8.5-10.1)
[2021-08-06 06:05] LABS: CREATININE SERUM 0.82 MG/DL (0.60-1.30)
[2021-08-06] MEDS: HYDROcodone/APAP 5 MG/325 MG (LORTAB) TAB PO PRN ×3 (08:00→20:05)
[2021-08-06] MEDS: VANCOMYCIN 1500 MG/NS 500 ML IVPB IV SCH ×4 (08:01→21:01)
[2021-08-06] MEDS: morphine INJ 4 MG/ML 1 ML (VIAL/SYRINGE) IV PRN ×2 (10:46→23:25)
[2021-08-06] MEDS ORDERED: LIDOCAINE/EPI 2% 1:200,00 (XYLOCAINE) 20 ML VIAL ONE (12:40)
[2021-08-06] MEDS ORDERED: MIDAZOLAM 2 MG/2 ML (VERSED) VIAL ONE (12:46)
[2021-08-06] MEDS ORDERED: ONDANSETRON 4 MG/2 ML (SDV) Z0FRAN ONE (12:46)
[2021-08-06] MEDS ORDERED: LIDOCAINE PF 2% 5 ML (XYLOCAINE) VIAL ONE (12:46)
[2021-08-06] MEDS ORDERED: SEVOFLURANE (ULTANE) 15 ML INHAL SOLN ONE ×2 (12:46→14:50)
[2021-08-06] MEDS ORDERED: fentaNYL INJ 100 MCG/2 ML AMP ONE (12:46)
[2021-08-06] MEDS ORDERED: proPOfol 200 MG/20 ML (DIPRIVAN) VIAL IV ONE (12:46)
--- NOTE | 2021-08-06 13:02 | Wound Care Assessment ---
Wound Care Assessment Date Seen by Provider: August 06, 2021 Time Seen by Provider: 12:53 Chief Complaint Dog bites bilateral leg and right hand HPI This pleasant 41 year old gentleman was bitten numerous times by a pit bull at a recent get together. The dog is owned by a friend and has been quarantined recently for another bite and is up to date on rabies shots (I have no confirmatory records, this is per patient history). The bite occurred on Thursday and he presented to an outside facility. He left AMA to avoid EMS transport and came to our facility for surgical consultation. He has numerous infected puncture/bite grayson to right thigh, left lower leg and right hand. The wound to his left lower leg has purulent drainage and probes to bone on exam today. There is also a flap of tissue that appears necrotic. There is slough, purulent drainage and eschar to the wounds. His hand has no drainage, only a stable eschar. There is some mild erythema and significant edema. His hand is warm and tender to touch. There is no pallor or parasthesia. Puncture wounds are present on both palmar and posterior surfaces. Differential would include abscess, compartment syndrome or swelling associated with trauma from the bite. Marito's wound healing will be complicated by underlying infection, tobaccoism (20 pack year history) and active methamphetamine usage. We discussed lifestyle modification for improved wound healing at length. He verbalizes understanding. I do agree with broad spectrum antibiotics for infection control. Plan to dress with vashe wet to dry for now. Will await Dr. Buenrostro's input on whether OR debridement will be necessary vs bedside. If debridement is not currently war ranted, will add santyl to current dressings for chemical debridement. Smoking Status: Current Everyday Smoker (20 pack year history) Recreational Drug Use: Yes (methamphetamine and marijuana) Alcohol Use: Occasionally Uses Exam Vital Signs Date Time Temp Pulse Resp B/P (MAP) Pulse Ox O2 Delivery O2 Flow Rate FiO2 08/06/21 12:01 36.8 81 18 131/81 (98) 95 Room Air Capillary Refill : Less Than 3 Seconds General Appearance: WD/WN, no apparent distress HEENT: other (Poor dentition) Neck: full range of motion Respiratory: no respiratory distress, no accessory muscle use Neurologic/Psychiatric: alert, normal mood/affect, oriented x 3 Skin: normal color, warm/dry Skin Character: drainage (purulent drainage), erythema (lower extremity), warm Wound Assessments: 1. Hand: stable eschar to both palmar and posterior surfaces (puncture wounds). Extensive edema with mild erythema associated. Warm to touch and tender. No fluctuance noted 2. Right thigh: 4.5x2.5x0.9 (clustered). Inferior ulcer with small tunnel at 12 o'clock 0.9cm. The epithelialization is none, drainage is large and purulent, granulation is none, necrotic is large and slough with eschar. Wound margins are flat 3. Left medial le.5x3x1.1cm (clustered): The epithelialization is none. There is no tunneling or undermining. Drainage is large and purulent, granulation is none, necrotic is large and slough with eschar. The ulcer does probe to bone. Margins are flat 4. Left lateral le.8x3.2x0.9. The epithelialization is none. There is no tunneling but there is a cyanotic flap on inferior portion of wound that I suspect is non-viable. Drainage is large and purulent. Granulation is none. Necrotic is large with slough and eschar. Margins are epibole Results Laboratory Tests 08/05/21 19:11: Urine Color YELLOW, Urine Clarity CLEAR, Urine pH 6.0, Urine Specific [place] 1.025H, Urine Protein NEGATIVE, Urine Glucose (UA) NEGATIVE, Urine Ketones NEGATIVE, Urine Nitrite NEGATIVE, Urine Bilirubin NEGATIVE, Urine Urobilinogen 2.0, Urine Leukocyte Esterase NEGATIVE, Urine RBC (Auto) NEGATIVE, Urine RBC RARE, Urine WBC 2-5, Urine Squamous Epithelial Cells RARE, Urine Crystals NONE, Urine Bacteria FEWH, Urine Casts NONE, Urine Mucus MODERATEH, Urine Culture Indicated CULTURE PENDING, Urine Opiates Screen POSITIVEH, Urine Oxycodone S creen NEGATIVE, Urine Methadone Screen NEGATIVE, Urine Propoxyphene Screen NEGATIVE, Urine Barbiturates Screen NEGATIVE, Ur Tricyclic Antidepressants Screen NEGATIVE, Urine Phencyclidine Screen NEGATIVE, Urine Amphetamines Screen POSITIVEH, Urine Methamphetamines Screen POSITIVEH, Urine Benzodiazepines Screen NEGATIVE, Urine Cocaine Screen NEGATIVE, Urine Cannabinoids Screen POSITIVEH 08/05/21 19:18: White Blood Count 12.6H, Red Blood Count 5.01, Hemoglobin 14.4, Hematocrit 42, Mean Corpuscular Volume 84, Mean Corpuscular Hemoglobin 29, Mean Corpuscular Hemoglobin Concent 34, Red Cell Distribution Width 14.1, Platelet Count 229, Mean Platelet Volume 10.8, Immature Granulocyte % (Auto) 0, Neutrophils (%) (Auto) 71, Lymphocytes (%) (Auto) 19, Monocytes (%) (Auto) 9, Eosinophils (%) (Auto) 1, Basophils (%) (Auto) 0, Neutrophils # (Auto) 8.9H, Lymphocytes # (Auto) 2.3, Monocytes # (Auto) 1.1H, Eosinophils # (Auto) 0.1, Basophils # (Auto) 0.0, Immature Granulocyte # (Auto) 0.0, Prothrombin Time 13.7, INR Comment 1.0, Activated Partial Thromboplast Time 33, Sodium Level 136, Potassium Level 3.6, Chloride Level 100, Carbon Dioxide Level 21, Anion Gap 15H, Blood Urea Nitrogen 9, Creatinine 0.91, Estimat Glomerular Filtration Rate 107, BUN/Creatinine Ratio 10, Glucose Level 118H, Lactic Acid Level 0.74, Calcium Level 9.0, Corrected Calcium 8.9, Total Bilirubin 0.8, Aspartate Amino Transf (AST/SGOT) 24, Alanine Aminotransferase (ALT/SGPT) 19, Alkaline Phosphatase 37L, Total Protein 7.0, Albumin 4.1 08/05/21 20:48: Glucometer 81 08/05/21 22:10: SARS-CoV-2 RNA (RT-PCR) Not Detected 08/06/21 05:20: White Blood Count 8.2, Red Blood Count 5.02, Hemoglobin 14.2, Hematocrit 43, M ryan Corpuscular Volume 86, Mean Corpuscular Hemoglobin 28, Mean Corpuscular Hemoglobin Concent 33, Red Cell Distribution Width 14.2, Platelet Count 201, Mean Platelet Volume 10.9, Immature Granulocyte % (Auto) 0, Neutrophils (%) (Auto) 57, Lymphocytes (%) (Auto) 28, Monocytes (%) (Auto) 13H, Eosinophils (%) (Auto) 2, Basophils (%) (Auto) 0, Neutrophils # (Auto) 4.7, Lymphocytes # (Auto) 2.3, Monocytes # (Auto) 1.1H, Eosinophils # (Auto) 0.2, Basophils # (Auto) 0.0, Immature Granulocyte # (Auto) 0.0, Sodium Level 142, Potassium Level 3.5L, Chloride Level 107, Carbon Dioxide Level 23, Anion Gap 12, Blood Urea Nitrogen 9, Creatinine 0.82, Estimat Glomerular Filtration Rate 112, BUN/Creatinine Ratio 11, Glucose Level 110H, Calcium Level 8.6 08/06/21 05:42: Glucometer 106 08/06/21 11:29: Glucometer 89 Assessment/Plan/Dx Assessment: 1. Dog bite with infected wounds to bilateral legs 2. Significant edema to right hand with associated dog bite 3. Illicit drug use 4. Tobaccoism Plan: 1. Agree with broad spectrum antibiotics 2. Cleanse wounds with Vashe and use for WTD packing twice daily 3. Defer to Dr. Buenrostro's capable hands in regards to surgical vs. chemical debridement to lower extremity wounds. If he forgoes surgical debridement, I do plan to add santyl to WTD dressings. 4. The hand puncture is currently dry. Differential includes trauma associated swelling, infection/abscess vs. compartment syndrome. Consider imaging to rule out deep abscess if surgery is not indicated at this time. Thank you very much for this consult. Please do not hesitate to call with questions or concerns. KWABENA YING MD August 06, 2021 13:02
--- NOTE | 2021-08-06 13:14 | Progress Note ---
Standard Progress Note Progress Notes/Assess & Plan Date Seen by a Provider: August 06, 2021 Time Seen by a Provider: 12:00 Progress/Assessment & Plan significant wound edema right hand. chest-few scattered wheezes blilateral. heart-regular, no murmurs. extr-macerated wound right leg, no edema. abd-soft non-tender/non-distended. skin-warm,dry left hand abscess/compartment syndrome. will proceed with decompression and I&D Focused Exam Lactate Level 08/05/21 19:18: Lactic Acid Level 0.74 MARY PAINTING MD August 06, 2021 13:14
[2021-08-06] MEDS ORDERED: LACTATED RINGERS 1,000 ML IV PRN ×2 (13:15)
--- NOTE | 2021-08-06 14:38 | Progress Note-Post Operative ---
Post-Operative Progess Note Surgeon (s)/Ice Skating Coach (s) Surgeon MARY PAINTING MD Ice Skating Coach: none Pre-Operative Diagnosis right hand and left thigh abscess and skin necrosis. Post-Operative Diagnosis right hand compartment syndrome Procedure & Operative Findings Date of Procedure 08/06/21 Procedure Performed/Findings right hand fasciotomy and debridement skin,subc,and fascia left lower knee x3 areas, total area 22cm2 Anesthesia Type general lma and local Estimated Blood Loss Estimated blood loss (mL): minimal Specimens/Packing Specimens Removed c+s and right hand and left leg MARY PAINTING MD August 06, 2021 14:38
[2021-08-06] MEDS ORDERED: HYDROmorphone 2 MG/ML VIAL (DILAUDID) IV ONE (15:00)
[2021-08-06] MEDS ORDERED: fentaNYL INJ 100 MCG/2 ML AMP IVP ONE (15:00)
[2021-08-06] MEDS ORDERED: ONDANSETRON 4 MG/2 ML (SDV) Z0FRAN IVP PRN (15:00)
--- NOTE | 2021-08-06 15:17 | Anesthesia-General Post-Op ---
General Patient Condition Mental Status/LOC: Same as Preop Cardiovascular: Satisfactory Nausea/Vomiting: Absent Respiratory: Satisfactory Pain: Controlled Complications: Absent Post Op Complications Complications None Follow Up Care/Instructions Patient Instructions None needed. Anesthesia/Patient Condition Patient Condition Patient is doing well, no complaints, stable vital signs, no apparent adverse anesthesia problems. HENOK MARCUS DO August 06, 2021 15:17
[2021-08-06] MEDS: fentaNYL INJ 100 MCG/2 ML AMP IV PRN (21:02)
[2021-08-06] MEDS: HYPOCHLOROUS ACID/NaCl (VASHE) 250 ML IR PRN (22:19)
--- NOTE | 2021-08-06 23:15 | OPERATIVE REPORT ---
DATE OF SERVICE: 08/06/2021 PREOPERATIVE DIAGNOSES: Right hand compartment syndrome, left lower extremity full-thickness necrosis skin, subcutaneous tissue and fascia in three different spots along the anterolateral hernández. POSTOPERATIVE DIAGNOSES: Right hand compartment syndrome, left lower extremity full-thickness necrosis skin, subcutaneous tissue and fascia in three different spots along the anterolateral hernández. PROCEDURE: Right hand dorsal fasciotomy, left leg debridement of skin, subcutaneous tissue and fascia, three areas encompassing 22 cm2. SURGEON: Mary Painting MD ANESTHESIA: General with local. ESTIMATED BLOOD LOSS: Minimal. FINDINGS: Right hand compartment syndrome, left lower extremity full-thickness necrosis skin, subcutaneous tissue and fascia in three different spots along the anterolateral hernández. DISPOSITION: The patient tolerated the procedure well. INDICATIONS: The patient is a 41-year-old male who presented to [facility] Emergency Department by private vehicle. He has had some form of republican and was playing with a dog and the dog had bit him along the right hand and bilateral thighs. This was a few days ago and he initially was seen at [facility] and given IV dose of antibiotics as well as oral antibiotics. He went back with worsening swelling and was instructed to proceed with IV antibiotics and admission; however, left AMA. He has a history of drug abuse and was positive for methamphetamine and phentermine marijuana as well as opiates. Upon examination, he was found to have a right hand compartment syndrome as well as necrosis of skin and subcutaneous tissue as well as fascia in three separate areas of the left upper and lateral hernández. A total area of 22 cm2. DESCRIPTION OF PROCEDURE: The patient was brought to the operating room, laid supine on the table. After adequate IV pain and sedative medications and general laryngeal mask airway intubation, the hand and lower extremity was prepped and draped in standard surgical fashion. A 1% lidocaine with epinephrine was used to anesthetize the overlying skin to the dorsum of the right hand as well as the lesions of the left leg. We then proceeded with a fasciotomy vertically along two spots of the dorsum of the hand. We got good hemostasis with electrocautery. There was a lot of edema surrounding the area. No abscess identified. This was sent for culture and sensitivity. This wound was then packed with half-inch iodoform gauze followed by 4 x 4 gauze followed by Kerlix wrap and a wrist splint. The open incisions along the left hernández were then debrided including skin, subcutaneous tissue and fascia in three separate spots; one 3 x 3 cm. The other the same and the other 2 x 2 cm in size with a total area of debridement 22 cm. Good hemostasis was observed. Wounds were then packed with half-inch iodoform gauze followed by 4 x 4 gauze followed by Kerlix wrap. The patient tolerated the procedure well. We will await the culture and sensitivity report results and continue with wound care services. Job ID: [id number] DocumentID: [id number] Dictated Date: 08/06/2021 14:43:36 Vice President Financial Date: 08/06/2021 23:14:31 Dictated By: MARY PAINTING MD MTDD
[2021-08-07 00:05] VITALS: BP 117/77
[2021-08-07] MEDS: MEROPENEM 500 MG in NS (IVPB) 100 ML IV SCH ×4 (01:40→20:02)
[2021-08-07] MEDS: LACTATED RINGERS 1,000 ML IV SCH ×4 (01:40→21:17)
[2021-08-07 04:56] VITALS: BP 129/87
[2021-08-07] MEDS: HYDROcodone/APAP 5 MG/325 MG (LORTAB) TAB PO PRN ×2 (06:56→20:03)
[2021-08-07 07:40] VITALS: BP 137/83
[2021-08-07] MEDS: fentaNYL INJ 100 MCG/2 ML AMP IV PRN ×3 (08:01→21:18)
[2021-08-07] MEDS ORDERED: IBUP-2473 PO (08:02)
[2021-08-07] MEDS: VANCOMYCIN 1500 MG/NS 500 ML IVPB IV SCH ×4 (09:25→20:30)
[2021-08-07 11:05] VITALS: BP 126/69
[2021-08-07] MEDS: morphine INJ 4 MG/ML 1 ML (VIAL/SYRINGE) IV PRN ×3 (11:23→20:29)
--- NOTE | 2021-08-07 14:41 | Wound Care Assessment ---
Wound Care Assessment Date Seen by Provider: Aug 07, 2021 Time Seen by Provider: 11:00 Chief Complaint Dog bites bilateral leg and right hand HPI This pleasant 41 year old gentleman was bitten numerous times by a pit bull at a recent get together. The dog is owned by a friend and has been quarantined recently for another bite and is up to date on rabies shots (I have no confirmatory records, this is per patient history). The bite occurred on Thursday and he presented to an outside facility. He left AMA to avoid EMS transport and came to our facility for surgical consultation. He has numerous infected puncture/bite grayson to right thigh, left lower leg and right hand. Marito underwent surgical debridement to the wounds on bilateral legs and fasciotomy to hand. His erythema and edema to all areas are improved today. The wounds in legs are packed with vashe dampened gauze (appropriately). He has xeroform to his fasciotomy incisions. Marito's wound healing will be complicated by underlying infection, tobaccoism (20 pack year history) and acti ve methamphetamine usage. We discussed lifestyle modification for improved wound healing at length yesterday. He verbalized understanding. I do agree with broad spectrum antibiotics for infection control. There is concern for Marito's living situation. He is currently staying with a friend but lived in [place]. He has been noncompliant with follow up in the past and certainly with active drug use is again at risk for poor follow up. He has stated that he is willing to follow up in my office. Smoking Status: Current Everyday Smoker (20 pack year history) Recreational Drug Use: Yes (methamphetamine and marijuana) Alcohol Use: Occasionally Uses Exam Vital Signs Date Time Temp Pulse Resp B/P (MAP) Pulse Ox O2 Delivery O2 Flow Rate FiO2 08/07/21 11:05 36.9 73 18 126/69 (88) 97 Room Air 08/06/21 15:00 3 Capillary Refill : Less Than 3 SecondsLess Than 3 Seconds General Appearance: WD/WN, moderate distress (pain with dressing change) Neck: full range of motion Respiratory: no respiratory distress, no accessory muscle use Extremities: normal range of motion Neurologic/Psychiatric: alert, normal mood/affect, oriented x 3 Skin: warm/dry, other (improvement in erythema/streaking) Skin Character: drainage, erythema Results Laboratory Tests 08/06/21 16:16: Glucometer 177H Microbiology 08/06/21 Gram Stain, Received Pending 08/06/21 Anaerobic Culture, Received Pending 08/06/21 Surgical Culture, Received Pending 08/05/21 MRSA Screen - Final, Complete MRSA not isolated 08/05/21 Blood Culture - Preliminary, Resulted No growth 08/05/21 Urine Culture - Final, Complete NO GROWTH Microbiology 08/06/21 Gram Stain, Received Pending 08/06/21 Anaerobic Culture, Received Pending 08/06/21 Surgical Culture, Received Pending 08/06/21 Gram Stain, Received Pending 08/06/21 Anaerobic Culture, Received Pending 08/06/21 Surgical Culture, Received Pending 08/05/21 MRSA Screen - Final, Complete MRSA not isolated 08/05/21 Blood Culture - Preliminary, Resulted No growth 08/05/21 Blood Culture - Preliminary, Resulted No growth 08/05/21 Urine Culture - Final, Complete NO GROWTH Assessment/Plan/Dx Assessment: 1. Dog bite with infected wounds to bilateral legs 2. Compartment syndrome R. hand s/p fasciotomy 3. Illicit drug use 4. Tobaccoism Plan: 1. Agree with broad spectrum antibiotics 2. Cleanse LE wounds with Vashe and use for WTD packing twice daily 3. Iodoform gauze packing to fasciotomy incisions. Cleanse daily with vashe and pack. 4. Mr. Lincoln should have follow up arranged upon d/c for our clinic. The importance of close follow up was stressed today. With his infection and nature of wounds, he is high risk for worsening. KWABENA YING MD Aug 07, 2021 14:41
[2021-08-07 15:40] VITALS: BP 126/79
--- NOTE | 2021-08-07 16:05 | Progress Note ---
Standard Progress Note Progress Notes/Assess & Plan Date Seen by a Provider: Aug 07, 2021 Time Seen by a Provider: 15:00 Progress/Assessment & Plan doing better. less right hand and left thigh pain. much less hand edema. WBC normal with no fever/chills. right hand abscess/compartment syndrome s/p fasciotomy hand and debridement left thigh. will cont with IV abx and wound care. patient will have very poor prognosis if he continues to smoke and take illicit drugs. Focused Exam Lactate Level 08/05/21 19:18: Lactic Acid Level 0.74 MARY PAINTING MD Aug 07, 2021 16:05
[2021-08-07 19:12] VITALS: BP 133/74
[2021-08-07] MEDS: HYPOCHLOROUS ACID/NaCl (VASHE) 250 ML IR PRN (21:38)
[2021-08-08] VITALS (7 sets, daily range): BP systolic 117–137; BP diastolic 72–84
[2021-08-08] MEDS: HYDROcodone/APAP 5 MG/325 MG (LORTAB) TAB PO PRN ×4 (01:25→19:53)
[2021-08-08] MEDS: MEROPENEM 500 MG in NS (IVPB) 100 ML IV SCH ×4 (01:45→19:54)
[2021-08-08] MEDS: LACTATED RINGERS 1,000 ML IV SCH ×4 (03:05→21:37)
[2021-08-08] MEDS: morphine INJ 4 MG/ML 1 ML (VIAL/SYRINGE) IV PRN ×4 (05:25→21:36)
[2021-08-08] MEDS: VANCOMYCIN 1500 MG/NS 500 ML IVPB IV SCH ×4 (08:02→21:36)
--- NOTE | 2021-08-08 14:21 | Progress Note ---
Subjective Date Seen by a Provider: Aug 08, 2021 Time Seen by a Provider: 14:15 Subjective/Events-last exam Patient seen with Dr. Buenrostro. Patient reports well. No complaints at this time. Focused Exam Lactate Level 08/05/21 19:18: Lactic Acid Level 0.74 Objective Exam Vital Signs Date Time Temp Pulse Resp B/P (MAP) Pulse Ox O2 Delivery O2 Flow Rate FiO2 08/08/21 11:33 37.0 60 19 122/74 (90) 97 Room Air 08/08/21 08:00 96 Room Air 08/08/21 08:00 96 Room Air 08/08/21 07:32 37.0 65 16 118/79 (92) 96 Room Air 08/08/21 04:59 37.0 59 18 117/77 (90) 97 Room Air 08/08/21 00:57 37.1 63 18 119/72 (88) 97 Room Air 08/07/21 20:35 97 Room Air 08/07/21 19:12 37.3 78 18 133/74 (93) 97 Room Air 08/07/21 15:40 37.2 73 18 126/79 (95) 96 Room Air I & O 08/08/21 07:00 Intake Total 2645 ml Output Total 5225 ml Balance -2580 ml Capillary Refill : Less Than 3 SecondsLess Than 3 Seconds General Appearance: No Apparent Distress, WD/WN Neck: Normal Inspection, Supple Respiratory: No Accessory Muscle Use, No Respiratory Distress Cardiovascular: Regular Rate, Rhythm, No Edema Gastrointestinal: normal bowel sounds, non tender, soft Extremity: Normal Capillary Refill, Normal Range of Motion Neurologic/Psychiatric: Alert, Oriented x3 Skin: Other (Right hand dressing in place, C/D/I with splint in place. Left thight and Right lower extremity dressing in place C/D/I) Results Lab Microbiology 08/06/21 Gram Stain - Final, Resulted 08/06/21 Anaerobic Culture - Preliminary, Resulted No anaerobes isolated 08/06/21 Surgical Culture - Preliminary, Resulted No growth 08/05/21 MRSA Screen - Final, Complete MRSA not isolated 08/05/21 Blood Culture - Preliminary, Resulted No growth 08/05/21 Urine Culture - Final, Complete NO GROWTH Assessment/Plan Assessment/Plan Assess & Plan/Chief Complaint A 41 year old male with right hand abscess/compartment syndrome s/p fasciotomy hand and debridement left thigh. will cont with IV abx and wound care. patient will have very poor prognosis if he continues to smoke and take illicit drugs. Will consult for placement due to patient not able to change his own dressing MARYBEL CUEVAS APRN Aug 08, 2021 14:21
[2021-08-08] MEDS: HYPOCHLOROUS ACID/NaCl (VASHE) 250 ML IR PRN (21:37)
[2021-08-09] MEDS: HYDROcodone/APAP 5 MG/325 MG (LORTAB) TAB PO PRN ×3 (00:46→15:10)
[2021-08-09] MEDS: MEROPENEM 500 MG in NS (IVPB) 100 ML IV SCH ×3 (01:40→12:55)
[2021-08-09] MEDS: morphine INJ 4 MG/ML 1 ML (VIAL/SYRINGE) IV PRN ×3 (03:48→12:51)
[2021-08-09 04:00] VITALS: BP 123/80
[2021-08-09] MEDS: LACTATED RINGERS 1,000 ML IV SCH ×2 (06:30→14:05)
[2021-08-09 07:50] VITALS: BP 117/76
[2021-08-09 11:33] VITALS: BP 136/86
--- NOTE | 2021-08-09 12:09 | Discharge Inst-Surgical ---
D/C Lap Instructions-KIDO New, Converted, or Re-Newed RX: RX on Chart Follow Up with OP wound care Activity as tolerated Regular Diet Symptoms to Report: Fever over 101 degree F, Nausea/Vomiting Infection Signs and Symptoms to report: Increased redness, Foul odor of wound, Increased drainage Bathing instructions: May shower Operative Area Clean/Dry; Keep incision clean/dry If any problems/questions: Contact your physician or go to Emergency Room MARY PAINTING MD Aug 09, 2021 12:08
[2021-08-09] MEDS ORDERED: FLUC100T PO (15:00)
[2021-08-09] MEDS ORDERED: LEVO750T39 PO (15:00)
[2021-08-09] MEDS ORDERED: TRAM50TA3 PO (15:00)
--- NOTE | 2021-08-09 15:23 | Progress Note ---
Subjective Date Seen by a Provider: Aug 09, 2021 Time Seen by a Provider: 11:00 Subjective/Events-last exam doing much better. wound healing well. some ischemia skin dorsal hand. no redness/erythema, no purulence. Objective Exam Vital Signs Date Time Temp Pulse Resp B/P (MAP) Pulse Ox O2 Delivery O2 Flow Rate FiO2 08/09/21 11:33 36.8 70 17 136/86 (103) 98 Room Air 08/09/21 07:50 36.5 55 17 117/76 (90) 97 Room Air 08/09/21 04:00 36.5 67 17 123/80 (94) 98 Room Air 08/08/21 23:55 36.3 72 17 122/75 (91) 96 Room Air 08/08/21 19:55 Room Air 08/08/21 19:08 37.5 78 18 131/84 (100) 99 Room Air 08/08/21 16:08 36.9 56 16 137/78 (97) 97 Room Air I & O 08/09/21 07:00 Intake Total 5775 ml Output Total 1100 ml Balance 4675 ml Capillary Refill : Less Than 3 SecondsLess Than 3 Seconds General Appearance: No Apparent Distress HEENT: PERRL/EOMI Neck: Full Range of Motion Respiratory: Chest Non Tender, Wheezing Cardiovascular: Regular Rate, Rhythm Gastrointestinal: normal bowel sounds, non tender, soft Extremity: Normal Capillary Refill, Other (ischemia bridge of skin dorsal right hand between fasciotomy, no signs infxn.) Neurologic/Psychiatric: Alert, Oriented x3 Skin: Normal Color Lymphatic: No Adenopathy Results Lab Microbiology 08/06/21 Gram Stain - Final, Resulted 08/06/21 Anaerobic Culture - Preliminary, Resulted No anaerobes isolated 08/06/21 Surgical Culture - Final, Resulted No growth 08/05/21 MRSA Screen - Final, Complete MRSA not isolated 08/05/21 Blood Culture - Preliminary, Resulted No growth 08/05/21 Urine Culture - Final, Complete NO GROWTH Assessment/Plan Assessment/Plan Assess & Plan/Chief Complaint s/p right hand fasciotomy and debridement left knee. dry gauze followed by kerlix bid. from our understanding pt going to stay with aunt in [place] who will help with dressing change and go to OP follow ups. MARY PAINTING MD Aug 09, 2021 15:23
[2021-08-09 15:28] VITALS: BP 136/86
== END 2021-08-09 15:30 | disposition home or self-care (01) | DRG 571 ==
LOC: EDUNIT# 18:39 → ER 18:40 → 4TH 19:30 → EDLOC 19:30
PROVIDERS: ADMIT Surgery; ATTEND Surgery
PROC: 0KNC0ZZ Release Right Hand Muscle, Open Approach (ICD-10-PCS; 2021-08-06)
PROC: 0KNC0ZZ Release Right Hand Muscle, Open Approach (ICD-10-PCS; 2021-08-06)
PROC: 0JBP0ZZ Excision of Left Lower Leg Subcutaneous Tissue and Fascia, Open Approach (ICD-10-PCS; principal; 2021-08-06 13:29)
DX: L02.416 Cutaneous abscess of left lower limb (principal); L02.511 Cutaneous abscess of right hand; T79.A11A Traumatic compartment syndrome of right upper extremity, initial encounter; S81.852A Open bite, left lower leg, initial encounter; S61.451A Open bite of right hand, initial encounter; S71.151A Open bite, right thigh, initial encounter; W54.0XXA Bitten by dog, initial encounter; F17.210 Nicotine dependence, cigarettes, uncomplicated; F15.90 Other stimulant use, unspecified, uncomplicated; F12.90 Cannabis use, unspecified, uncomplicated; Z20.822 Contact with and (suspected) exposure to COVID-19
CPT/HCPCS: 36415; 73130; 73552; 73590; 80048; 80053; 80306; 81000; 82947; 83605; 85025; 85610; 85730; 87040; 87070; 87075; 87077; 87081; 87088; 87181; 87184; 87185; 87205; 87636

== ENCOUNTER → 2021-08-15 | Outpatient (CLI) | payer OTHER ==
[~2021-08-15] MED LIST: FLUC100T PO; IBUP-2473 PO; LEVO750T39 PO; TRAM50TA3 PO
== END ==
LOC: WOUNDCARE 08:45
PROVIDERS: ATTEND Family Medicine
DX: L03.116 Cellulitis of left lower limb (principal); L03.113 Cellulitis of right upper limb; T79.A11A Traumatic compartment syndrome of right upper extremity, initial encounter; F15.188 Other stimulant abuse with other stimulant-induced disorder; T65.222A Toxic effect of tobacco cigarettes, intentional self-harm, initial encounter; Z59.01 Sheltered homelessness; W54.0XXA Bitten by dog, initial encounter
CPT/HCPCS: 11042; 11043; 11046; A6260; G0463

== ENCOUNTER → 2021-08-22 | Outpatient (CLI) | payer OTHER | LOC: WOUNDCARE 09:48 | PROVIDERS: ATTEND Family Medicine | DX: L03.116 Cellulitis of left lower limb (principal); T79.A21A Traumatic compartment syndrome of right lower extremity, initial encounter; F15.14 Other stimulant abuse with stimulant-induced mood disorder; T65.222A Toxic effect of tobacco cigarettes, intentional self-harm, initial encounter; Z59.01 Sheltered homelessness; I96 Gangrene, not elsewhere classified; W54.0XXA Bitten by dog, initial encounter | CPT/HCPCS: 11043; 11046; 87070; 87077; 87186; 87205; G0463 ==

== ENCOUNTER → 2021-09-10 | Outpatient (CLI) | payer OTHER | LOC: WOUNDCARE 11:46 | PROVIDERS: ATTEND Family Medicine | DX: L03.116 Cellulitis of left lower limb (principal); L03.113 Cellulitis of right upper limb; T79.A19A Traumatic compartment syndrome of unspecified upper extremity, initial encounter; F15.14 Other stimulant abuse with stimulant-induced mood disorder; T65.222A Toxic effect of tobacco cigarettes, intentional self-harm, initial encounter; Z59.01 Sheltered homelessness; W54.0XXA Bitten by dog, initial encounter; I96 Gangrene, not elsewhere classified | CPT/HCPCS: 11042; 11045; A6197; G0463 ==

== ENCOUNTER → 2021-09-25 | Outpatient (CLI) | payer OTHER | LOC: WOUNDCARE 09:58 | PROVIDERS: ATTEND Family Medicine | DX: L97.922 Non-pressure chronic ulcer of unspecified part of left lower leg with fat layer exposed (principal); L98.492 Non-pressure chronic ulcer of skin of other sites with fat layer exposed; T79.A11A Traumatic compartment syndrome of right upper extremity, initial encounter; F15.14 Other stimulant abuse with stimulant-induced mood disorder; T65.222A Toxic effect of tobacco cigarettes, intentional self-harm, initial encounter; Z59.01 Sheltered homelessness; I96 Gangrene, not elsewhere classified; W54.0XXA Bitten by dog, initial encounter | CPT/HCPCS: 11042; G0463 ==

== ENCOUNTER → 2021-10-14 | Outpatient (CLI) | payer OTHER | LOC: WOUNDCARE 15:15 | PROVIDERS: ATTEND Family Medicine | DX: T79.A11A Traumatic compartment syndrome of right upper extremity, initial encounter (principal); L97.222 Non-pressure chronic ulcer of left calf with fat layer exposed; L98.492 Non-pressure chronic ulcer of skin of other sites with fat layer exposed; T65.222A Toxic effect of tobacco cigarettes, intentional self-harm, initial encounter; F15.188 Other stimulant abuse with other stimulant-induced disorder; Z59.01 Sheltered homelessness; W54.0XXA Bitten by dog, initial encounter | CPT/HCPCS: 99213 ==